=== PATIENT | female | born 1930 | race Asian ===

== ENCOUNTER 2016-06-25 12:29 | Emergency (ER) | payer MEDICARE, OTHER ==
[~2016-06-25] VITALS: Ht 157.5 cm; Wt 56.0 kg
[2016-06-25 12:45] VITALS: BP 135/66; PULSE 56; RESP 18; TEMP 98.4; O2SAT 96
--- NOTE | 2016-06-25 13:54 | PD ---
HPI . fall last night hurt left wrist Chief Complaint: Fall Time Seen by Provider: 13:53 Travel History International Travel<30 days: No Contact w/Intl Traveler<30days: No Traveled to known affect area: No History of Present Illness HPI 86 yr old female with HTN who does not speak british and has her daughter present as orthotic aide here with c/o of falling last night around 11pm-12am. She says she fell on her outstretched left arm and hurt her wrist. She now c/o left wrist pain 9/10 with some shooting sensation up to the elbow. She denies any LOC or head injury. She has had a prior injury of this wrist and had a fracture that was not repaired due to her advanced age. She has no other complaints. She tried [id number] ibuprofen without any relief. [facility] Past Medical History Hypertension: Yes Social History Alcohol Use: No Tobacco Use: No Substance Use: No Allergies-Medications (Allergen,Severity, Reaction): Coded Allergies: Aspirin (Verified Allergy, Severe, Anaphylaxis, 06/25/16) Reported Meds & Prescriptions Reported Meds & Active Scripts Active Reported Omeprazole 40 Mg Cap 40 Mg PO DAILY Losartan (Losartan Potassium) 25 Mg Tab 12.5 Mg PO DAILY Review of Systems General / Constitutional: No: Fever Eyes: No: Visual changes HENT: No: Headaches Cardiovascular: No: Chest Pain or Discomfort Respiratory: No: Shortness of Breath Gastrointestinal: No: Abdominal Pain Genitourinary: No: Dysuria Musculoskeletal: Positive: Pain (left wrist pain) Skin: No Rash Neurologic: No: Weakness Psychiatric: No: Depression Endocrine: No: Polydipsia Hematologic/Lymphatic: No: Easy Bruising Physical Exam Narrative GENERAL: AAO x 3, no acute distress, Well-nourished, well-developed patient. SKIN: Warm and dry. No visible rashes or bruising. HEAD: Normocephalic and atraumatic. EYES: No scleral icterus. No injection or drainage. ENT: No nasal drainage noted. Airway patent. NECK: Supple, trachea midline. No JVD. CARDIOVASCULAR: Regular rate and rhythm without murmurs, gallops, or rubs. RESPIRATORY: Breath sounds equal bilaterally. No accessory muscle use. No rhonchi or rales. GASTROINTESTINAL: Abdomen soft, non-tender, nondistended. EXTREMITIES: No cyanosis. minimal edema to left wrist. Tenderness to medial and lateral wrist. There is an obvious deformity of the medial wrist and this may be old.Simulation Engineer strength diminished in left wrist. Elbow and shoulder joint normal ROM. BACK: Nontender without obvious deformity. No CVA tenderness. PSYCH: AAO x 3, normal affect. Data Data Last Documented VS Vital Signs Date Time Temp Pulse Resp B/P Pulse Ox O2 Delivery O2 Flow Rate FiO2 06/25/16 12:45 98.4 56 18 135/66 96 Orders Wrist, Complete (Caa2dcp) (06/25/16 13:54) Tramadol (Ultram) (06/25/16 14:00) ^ Gabe Bandage (06/25/16 15:00) MDM Medical Decision Making Medical Screen Exam Complete: Yes Emergency Medical Condition: Yes Medical Record Reviewed: Yes Differential Diagnosis wrist sprain, wrist fracture, OA, fall Narrative Course 86 yr old female with HTN who does not speak british and has her daughter present as orthotic aide here with c/o of falling last night around 11pm-12am. She says she fell on her outstretched left arm and hurt her wrist. She now c/o left wrist pain 9/10 with some shooting sensation up to the elbow. She denies any LOC or head injury. She has had a prior injury of this wrist and had a fracture that was not repaired due to her advanced age. She has no other complaints. Tried [id number] ibuprofen without any relief. Patient seen and examined. She has minimal swelling of the left wrist. There is a deformity, but due to history I cannot tell if this is new or old. Recommend xray to look for acute fracture. Tramadol for pain in ED. NO acute fracture per xray. Recommend Gabe wrap and RICE. Tylenol PRN pain. Discussed with daughter and patient. Chemical Dependency Counselor services used to translate discharge instructions so that patient can understand. Patient verbalized understanding of instructions, questions were answered, and thanked me for their care. I advised them if their condition worsens, please return to the nearest emergency room for further care. Diagnosis Primary Impression: Fall Qualified Code: W19.XXXA - Fall, initial encounter Additional Impression: Left wrist sprain Qualified Code: S63.502A - Left wrist sprain, initial encounter Patient Instructions: General Instructions, Wrist Sprain (ED) Additional Instructions: Rest the affected area as much as possible. Ice this area for 15-20 minutes at a time. You can do this every hour or as much as tolerated. Keep this area compressed (gabe bandage) as tolerated. Elevate this area. Use Tylenol as needed for pain. Follow-up with your primary care provider. Med/Other Pt SpecificInfo: No Change to Meds Disposition: 01 DISCHARGE HOME Condition: Stable Sylvia Linares Jun 25, 2016 13:54
[2016-06-25] MEDS ORDERED: traMADol HCL 50 MG TAB PO ONE (14:00)
[2016-06-25] MEDS ORDERED: LOSA25TA PO (14:08)
[2016-06-25] MEDS ORDERED: OMEP40CA2 PO (14:08)
--- NOTE | 2016-06-25 14:48 | RADHPO ---
EXAM DATE/TIME: 06/25/2016 14:14 [place] COMPARISON: No previous studies available for comparison. INDICATIONS : Left wrist pain; fell yesterday. MEDICAL HISTORY : Previous fracture. SURGICAL HISTORY : None. ENCOUNTER: Initial ACUITY: 2 days PAIN SCORE: 8/10 LOCATION: Left wrist. FINDINGS: Three view examination of the left wrist demonstrates what I believe is an old fracture deformity of the distal radial metadiaphysis and a possible old ulnar styloid avulsion fracture. Cortical margins are otherwise intact with no acute osseous injury. CONCLUSION: 1. Plain film findings suggest an old fracture deformity of the distal radial metadiaphysis in an old ulnar styloid avulsion fracture. 2. No acute osseous injury. Wayne Bhagat MD on June 25, 2016 at 14:45 Board Certified Radiologist. This report was verified electronically.
== END 2016-06-25 15:24 | disposition home or self-care (01) ==
LOC: PHEFT 12:29
DX: S63.502A Unspecified sprain of left wrist, initial encounter (principal); I10 Essential (primary) hypertension; W19.XXXA Unspecified fall, initial encounter
CPT/HCPCS: 73110; 99283